=== PATIENT | female | born 1960 | race African-American/Black ===

== ENCOUNTER → 2020-08-16 | Outpatient (CLI) | payer OTHER | LOC: RAD 13:12 | PROVIDERS: ATTEND Internal Medicine | DX: J44.9 Chronic obstructive pulmonary disease, unspecified (principal); I51.7 Cardiomegaly ==

== ENCOUNTER → 2020-10-11 | Outpatient (CLI) | payer OTHER | LOC: RAD 11:45 | PROVIDERS: ATTEND Internal Medicine | DX: Z12.2 Encounter for screening for malignant neoplasm of respiratory organs (principal); Z87.891 Personal history of nicotine dependence ==